=== PATIENT | female | born 1985 | race African-American/Black ===

== ENCOUNTER 2023-01-14 10:55 | Emergency (ER) | payer BC, OTHER ==
[2023-01-14 10:59] VITALS: PULSE 98; TEMP 98; BMI 29.2
[2023-01-14] MEDS ORDERED: ACETAMINOPHEN 1000 MG/100 ML BAG IVPB ONE (11:33)
[2023-01-14] MEDS ORDERED: ONDANSETRON 4 MG/2 ML VIAL IVPUSH ONE (11:33)
[2023-01-14] MEDS ORDERED: ACETAMINOPHEN INJECTION 100 ML IVPB ONE (11:37)
[2023-01-14] MEDS ORDERED: ONDANSETRON 4 MG/2 ML VIAL ONE (11:37)
[2023-01-14 12:11] LABS: BASO % 1.3 % (0-2.0); EOS % 0.9 % (0-4.5); HEMATOCRIT 29.9 % (32.4-45.2); HEMOGLOBIN 9.4 GM/dL (10.7-15.3); LYMPH % 22.7 % (8-40); MCHC 31.5 g/dl (32.0-36.0); MEAN PLT VOLUME 9.9 fl (7.5-11.1); MONO % 9.3 % (3.8-10.2); NEUT % 65.8 % (42.8-82.8); PLATELET COUNT 397 10^3/uL (134-434); RBC 4.82 M/mm3 (3.60-5.2); RDW 22.2 % (11.6-15.6); WHITE BLOOD COUNT 4.1 K/mm3 (4.0-10.0)
[2023-01-14 12:13] LABS: HCG,QUALITATIVE URINE Positive; PH,URINE 5.5 (5.0-8.0); URINE APPEARANCE CLEAR; URINE BILIRUBIN NEGATIVE (NEGATIVE); URINE COLOR DK YELLOW; URINE GLUCOSE (UA) NEGATIVE (NEGATIVE); URINE KETONE TRACE (NEGATIVE); URINE LEUK ESTERASE NEGATIVE (NEGATIVE); URINE NITRITE NEGATIVE (NEGATIVE); URINE PROTEIN TRACE (NEGATIVE)
[2023-01-14 12:14] LABS: MCH 19.5 pg (25.7-33.7)
[2023-01-14 12:19] LABS: INR 1.11 (0.83-1.09); PROTHROMBIN TIME (PATIENT) 12.9 SEC (9.7-13.0)
[2023-01-14 12:22] LABS: ACTIVATED PTT 29.9 SECONDS (25.2-36.5)
[2023-01-14 12:34] LABS: CHLORIDE 108 mmol/L (98-107); POTASSIUM 5.8 mmol/L (3.5-5.1); SODIUM 137 mmol/L (136-145)
[2023-01-14 12:36] LABS: CALCIUM 8.7 mg/dL (8.5-10.1)
[2023-01-14 12:37] LABS: ALBUMIN 3.8 g/dl (3.4-5.0); ANION GAP 7 mmol/L (4-13); BLOOD UREA NITROGEN 8.1 mg/dL (7-18); CO2 22 mmol/L (21-32); GLUCOSE,RANDOM 87 mg/dL (74-106); LIPASE 40 U/L (73-393)
[2023-01-14 12:39] LABS: ANISOCYTOSIS 2+; MACROCYTOSIS 0
[2023-01-14 12:39] LABS: CREATININE 0.8 mg/dL (0.55-1.3)
[2023-01-14 12:40] LABS: SGOT/AST 62 U/L (15-37); SGPT/ALT 12 U/L (13-61)
[2023-01-14 12:41] LABS: BILIRUBIN,TOTAL 0.4 mg/dL (0.2-1); TOT PROT 8.8 g/dl (6.4-8.2)
[2023-01-14 12:42] LABS: ALK PHOS 71 U/L (45-117)
[2023-01-14 15:18] VITALS: BP 121/85; RESP 75
== END 2023-01-14 15:11 | disposition home or self-care (01) ==
LOC: JER 10:55
PROC: 3E033NZ Introduction of Analgesics, Hypnotics, Sedatives into Peripheral Vein, Percutaneous Approach (ICD-10-PCS; principal; 2023-01-14)
PROC: 3E033GC Introduction of Other Therapeutic Substance into Peripheral Vein, Percutaneous Approach (ICD-10-PCS; 2023-01-14)
DX: O26.891 Other specified pregnancy related conditions, first trimester (principal); R10.31 Right lower quadrant pain; R10.32 Left lower quadrant pain; O21.9 Vomiting of pregnancy, unspecified; R11.0 Nausea; Z3A.01 Less than 8 weeks gestation of pregnancy
CPT/HCPCS: 36415; 76817-TC; 80053; 81003; 83605; 83690; 84702; 84703; 85025; 85610; 85730; 86140; 99284-25